=== PATIENT | female | born 1960 | race Caucasian/White ===

== ENCOUNTER 2021-02-01 01:09 | Emergency (ER) | payer BC ==
[2021-02-01] MEDS ORDERED: ZITHROMAX250 MG PO (02:21)
== END 2021-02-01 02:37 | disposition home or self-care (01) ==
LOC: ER1 01:09
DX: U07.1 COVID-19 (principal); J12.82 Pneumonia due to coronavirus disease 2019
CPT/HCPCS: 71045; 99283

== ENCOUNTER → 2021-02-06 | Outpatient (CLI) | payer BC ==
[~2021-02-06] MED LIST: ZITHROMAX250 MG PO
== END ==
LOC: KOH-I 11:10
DX: U07.1 COVID-19 (principal); R91.8 Other nonspecific abnormal finding of lung field
CPT/HCPCS: 71046